=== PATIENT | male | born 1995 | race Caucasian/White ===

== ENCOUNTER → 2017-01-03 | Outpatient (RCR) | payer OTHER | END | disposition home or self-care (01) | PROVIDERS: ATTEND Orthopaedic Surgery | DX: M25.311 Other instability, right shoulder (principal); M75.41 Impingement syndrome of right shoulder; M25.511 Pain in right shoulder ==

== ENCOUNTER 2017-01-12 14:15 | Outpatient (RCR) | payer OTHER ==
--- OUTSIDE RECORDS SUMMARY | 2017-01-05 15:36 | XMS REPORT | Continuity of Care Document ---
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 Medications No medication information available. Social History Social History Problem Response Recorded Date/Time Recent Foreign Travel No 10/05/2016 9:46am Hospital Discharge Instructions No hospital discharge instructions. Plan of Care Prescriptions See Medication Section Functional Status No functional status results. Allergies, Adverse Reactions, Alerts No allergy information available. Immunizations No immunization records. Vital Signs No known vital signs results. Results No known relevant diagnostic tests, laboratory data and/or discharge summary. Procedures No known history of procedures. Encounters Encounter Location Arrival/Admit Date Discharge/Depart Date Attending Provider Discharged Recurring [facility] 01/03/17 2:29pm 11:59pm HAL CANALES MD
== END 2017-02-06 14:41 | disposition home or self-care (01) ==
PROVIDERS: ATTEND Orthopaedic Surgery
DX: M25.311 Other instability, right shoulder (principal); M75.41 Impingement syndrome of right shoulder; M25.511 Pain in right shoulder